=== PATIENT | female | born 1945 | race Two or more races ===

== ENCOUNTER 2017-04-23 18:16 | Observation (INO) | payer MEDICARE, OTHER ==
[~2017-04-23] VITALS: Ht 149.9 cm; Wt 45.4 kg
[2017-04-23 18:31] VITALS: BP 131/53
[2017-04-23] MEDS ORDERED: Sodium Chloride 500ML 500 ML IV ONE (18:45)
[2017-04-23] MEDS ORDERED: DiphenhydrAMINE 50mg/ml Inj IVP ONE (19:00)
--- NOTE | 2017-04-23 19:02 | Emergency Room Report ---
History of Present Illness General Chief Complaint: Dizziness Source: Patient Present Illness HPI Patient present with complaints of dizziness she reports at approximately 3:00 today she began feeling extremely dizzy nauseated She did vomit Denies any diarrhea Denies any chest pain or shortness of breath The dizziness is worsened with standing or moving her head Denies any neck pain or photophobia Denies any back pain or fall Allergies: Coded Allergies: No Known Allergies (Unverified , 04/23/17) Patient History Past Medical History: see triage record Pertinent Family History: none Last Menstrual Period: None Reviewed Nursing Documentation: PMH: Agreed, PSxH: Agreed Nursing Documentation-PMH Hx Diabetes: Yes Hx Cancer: Yes - right breast mastectomy Review of Systems All Other Systems: negative except mentioned in HPI Physical Exam Vital Signs Date Time Temp Pulse Resp B/P (MAP) Pulse Ox O2 Delivery O2 Flow Rate FiO2 04/23/17 18:21 98.2 74 22 147/62 99 Room Air Sp02 EP Interpretation: reviewed, normal General Appearance: mild distress - Appeared Nauseated Head: normocephalic, atraumatic Eyes: bilateral eye PERRL, bilateral eye EOMI ENT: hearing grossly normal, normal pharynx, TMs + canals normal, uvula midline Neck: full range of motion, supple, no meningismus, no bony tend Respiratory: lungs clear, normal breath sounds, no rhonchi, no respiratory distress, no retraction, no accessory muscle use Cardiovascular #1: normal peripheral pulses, regular rate, rhythm, no edema, no gallop, no JVD, no murmur Gastrointestinal: normal bowel sounds, non tender, soft, no mass, no organomegaly, non-distended, no guarding, no hernia, no pulsatile mass, no rebound Genitourinary: no CVA tenderness Musculoskeletal: normal inspection Neurologic: oriented x3, responsive, 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 as tested, motor strength/ tone normal, sensory intact Psychiatric: mood/affect normal Skin: normal color, no rash, warm/dry, palpation normal Lymphatic: normal inspection, no adenopathy Medical Decision Making Diagnostic Impression: Primary Impression: Dizziness Additional Impressions: Vomiting Unable to ambulate ER Course Patient is a fairly complex patient with multiple differential to consideration including but not limited to cardiac cardiopulmonary and vascular emergencies Intracranial pathology also entertained given the severe dizziness and vomiting CT head does not show any acute disease patient's blood work is at baseline levels Initially the patient felt well to go home however on attempt to stand has again extreme dizziness became nauseated patient is unable to ambulate and with this requires inpatient observation Labs Test 04/23/17 18:42 04/23/17 19:28 White Blood Count 9.6 K/UL (4.8-10.8) Red Blood Count 5.43 M/UL (4.20-5.40) Hemoglobin 12.2 G/DL (12.0-16.0) Hematocrit 40.4 % (37.0-47.0) Mean Corpuscular Volume 74 FL (80-99) Mean Corpuscular Hemoglobin 22.4 PG (27.0-31.0) Mean Corpuscular Hemoglobin Concent 30.1 G/DL (32.0-36.0) Red Cell Distribution Width 12.9 % (11.6-14.8) Platelet Count 232 K/UL (150-450) Mean Platelet Volume 7.2 FL (6.5-10.1) Neutrophils (%) (Auto) % (45.0-75.0) Lymphocytes (%) (Auto) % (20.0-45.0) Monocytes (%) (Auto) % (1.0-10.0) Eosinophils (%) (Auto) % (0.0-3.0) Basophils (%) (Auto) % (0.0-2.0) Differential Total Cells Counted 100 Neutrophils % (Manual) 83 % (45-75) Lymphocytes % (Manual) 12 % (20-45) Monocytes % (Manual) 4 % (1-10) Eosinophils % (Manual) 1 % (0-3) Basophils % (Manual) 0 % (0-2) Band Neutrophils 0 % (0-8) Platelet Estimate Adequate Platelet Morphology Normal Anisocytosis 1+ Sodium Level 140 MMOL/L (136-145) Potassium Level 3.7 MMOL/L (3.5-5.1) Chloride Level 103 MMOL/L (98-107) Carbon Dioxide Level 28 MMOL/L (21-32) Anion Gap 9 mmol/L (5-15) Blood Urea Nitrogen 21 mg/dL (7-18) Creatinine 0.7 MG/DL (0.55-1.30) Estimat Glomerular Filtration Rate > 60 mL/min (>60) Glucose Level 148 MG/DL (74-106) Calcium Level 9.5 MG/DL (8.5-10.1) Total Bilirubin 0.4 MG/DL (0.2-1.0) Aspartate Amino Transf (AST/SGOT) 18 U/L (15-37) Alanine Aminotransferase (ALT/SGPT) 21 U/L (12-78) Alkaline Phosphatase 63 U/L (46-116) Total Creatine Kinase 69 U/L (26-308) Creatine Kinase MB 0.5 NG/ML (0.0-3.6) Creatine Kinase MB Relative Index 0.7 Troponin I 0.001 ng/mL (0.000-0.056) Total Protein 7.9 G/DL (6.4-8.2) Albumin 4.0 G/DL (3.4-5.0) Globulin 3.9 g/dL Albumin/Globulin Ratio 1.0 (1.0-2.7) Lipase 260 U/L (73-393) Urine Color Pale yellow Urine Appearance Clear Urine pH 6 (4.5-8.0) Urine Specific [place] 1.015 (1.005-1.035) Urine Protein 2+ (NEGATIVE) Urine Glucose (UA) 4+ (NEGATIVE) Urine Ketones 1+ (NEGATIVE) Urine Occult Blood 2+ (NEGATIVE) Urine Nitrite Negative (NEGATIVE) Urine Bilirubin Negative (NEGATIVE) Urine Urobilinogen Normal MG/DL (0.0-1.0) Urine Leukocyte Esterase Negative (NEGATIVE) Urine RBC 2-4 /HPF (0 - 2) Urine WBC 0-2 /HPF (0 - 2) Urine Squamous Epithelial Cells Few /LPF (NONE/OCC) Urine Bacteria Few /HPF (NONE) Rhythm Strip Diag. Results EP Interpretation: yes Rate: 78 Rhythm: NSR, no PVC's, no ectopy Chest X-Ray Diagnostic Results Chest X-Ray Diagnostic Results : Chest X-Ray Ordered: Yes # of Views/Limited/Complete: 1 View Indication: Chest Pain EP Interpretation: Yes Interpretation: no consolidation, no effusion, no pneumothorax Impression: No acute disease Electronically Signed by: Elias Gardner DO CT/MRI/US Diagnostic Results CT/MRI/US Diagnostic Results : Impression CT head no acute disease Last Vital Signs Date Time Temp Pulse Resp B/P (MAP) Pulse Ox O2 Delivery O2 Flow Rate FiO2 04/23/17 18:31 97.1 71 19 131/53 95 Room Air Status: improved Disposition: PLACE IN OBSERVATION Condition: Serious Scripts Meclizine Hcl* (MECLIZINE*) 25 Mg Tablet 25 MG ORAL THREE TIMES A DAY, #14 TAB Prov: ELIAS GARDNER D.O. 04/23/17 Ondansetron Odt* (ZOFRAN ODT*) 4 Mg Tab.rapdis 4 MG ORAL Q6H Y for Nausea & Vomiting, #15 TAB 0 Refills Prov: ELIAS GARDNER D.O. 04/23/17 ELIAS GARDNER D.O. Apr 23, 2017 19:02
[2017-04-23 19:03] LABS: HEMATOCRIT 40.4 % (37.0-47.0); HEMOGLOBIN 12.2 G/DL (12.0-16.0); MEAN CORPUSCULAR VOLUME 74 FL (80-99); PLATELET COUNT 232 K/UL (150-450); RED BLOOD COUNT 5.43 M/UL (4.20-5.40); RED CELL DISTRIBUTION WIDTH 12.9 % (11.6-14.8); WHITE BLOOD COUNT 9.6 K/UL (4.8-10.8)
[2017-04-23 19:22] LABS: ALANINE AMINOTRANSFERASE 21 U/L (12-78); ALKALINE PHOSPHATASE 63 U/L (46-116); ANION GAP 9 mmol/L (5-15); ASPARTATE AMINO TRANSFERASE 18 U/L (15-37); BILIRUBIN,TOTAL 0.4 MG/DL (0.2-1.0); BLOOD UREA NITROGEN 21 mg/dL (7-18); CALCIUM 9.5 MG/DL (8.5-10.1); CARBON DIOXIDE 28 MMOL/L (21-32); CHLORIDE 103 MMOL/L (98-107); CKMB 0.5 NG/ML (0.0-3.6); CREATINE KINASE 69 U/L (26-308); CREATININE 0.7 MG/DL (0.55-1.30); POTASSIUM 3.7 MMOL/L (3.5-5.1); SODIUM 140 MMOL/L (136-145)
[2017-04-23 20:02] VITALS: BP 129/46
[2017-04-23 20:20] LABS: APPEARANCE,URINE CLEAR; BILIRUBIN, URINE NEGATIVE (NEGATIVE); COLOR,URINE PALE YELLOW; GLUCOSE, URINE (UA) 4+ (NEGATIVE); KETONES,URINE 1+ (NEGATIVE); LEUKOCYTE ESTERASE ,URINE NEGATIVE (NEGATIVE); NITRITE,URINE NEGATIVE (NEGATIVE); PH,URINE 6 (4.5-8.0); PROTEIN,URINE 2+ (NEGATIVE); UROBILINOGEN,URINE NORMAL MG/DL (0.0-1.0)
[2017-04-23] MEDS ORDERED: MECLIZINE HCL25 MG ORAL (20:24)
[2017-04-23] MEDS ORDERED: ZOFRAN ODT4 MG ORAL (20:24)
[2017-04-23] MEDS ORDERED: Meclizine 25mg tab ORAL ONE (20:30)
[2017-04-23] MEDS ORDERED: LOSARTAN POTASS50 MG ORAL (21:45)
[2017-04-23] MEDS ORDERED: METFORMIN HCL500 M1 ORAL (21:45)
[2017-04-23] MEDS ORDERED: JANUVIA25 MG ORAL (21:45)
[2017-04-23] MEDS ORDERED: ATORVASTATIN CA20 MG ORAL (21:45)
[2017-04-23 21:46] VITALS: BP 112/86
[2017-04-23] MEDS ORDERED: Milk of Magnesia 30ml Ud ORAL PRN (22:15)
[2017-04-23] MEDS ORDERED: Meclizine 25mg tab ORAL PRN (22:15)
[2017-04-24] VITALS: BP 128/58
[2017-04-24 04:00] VITALS: BP 124/66
[2017-04-24 07:52] LABS: BASOPHILS % (AUTO) 0.9 % (0.0-2.0); EOSINOPHILS % (AUTO) 1.6 % (0.0-3.0); HEMATOCRIT 39.3 % (37.0-47.0); HEMOGLOBIN 12.1 G/DL (12.0-16.0); LYMPHOCYTES % (AUTO) 37.7 % (20.0-45.0); MEAN CORPUSCULAR VOLUME 74 FL (80-99); MONOCYTES % (AUTO) 3.3 % (1.0-10.0); NEUTROPHILS % (AUTO) 56.4 % (45.0-75.0); PLATELET COUNT 231 K/UL (150-450); RED BLOOD COUNT 5.28 M/UL (4.20-5.40); RED CELL DISTRIBUTION WIDTH 13.3 % (11.6-14.8); WHITE BLOOD COUNT 5.7 K/UL (4.8-10.8)
[2017-04-24 08:00] VITALS: BP 136/67
[2017-04-24 08:14] LABS: ALANINE AMINOTRANSFERASE 20 U/L (12-78); ALBUMIN 3.6 G/DL (3.4-5.0); ALBUMIN/GLOBULIN RATIO 0.9 (1.0-2.7); ALKALINE PHOSPHATASE 61 U/L (46-116); ANION GAP 9 mmol/L (5-15); ASPARTATE AMINO TRANSFERASE 15 U/L (15-37); BILIRUBIN,TOTAL 0.6 MG/DL (0.2-1.0); BLOOD UREA NITROGEN 16 mg/dL (7-18); CALCIUM 9.1 MG/DL (8.5-10.1); CARBON DIOXIDE 26 MMOL/L (21-32); CHLORIDE 107 MMOL/L (98-107); CREATININE 0.7 MG/DL (0.55-1.30); POTASSIUM 3.8 MMOL/L (3.5-5.1); SODIUM 142 MMOL/L (136-145)
[2017-04-24] MEDS ORDERED: sitaGLIPtin 25mg tab ORAL SCH (09:00)
[2017-04-24] MEDS ORDERED: metFORMIN 500mg tab ORAL SCH (09:00)
[2017-04-24] MEDS ORDERED: Heparin 5000 units/ml inj SUBQ SCH (09:00)
[2017-04-24] MEDS ORDERED: NS w/KCl 20mEq 1,000 ML IV SCH (09:00)
[2017-04-24] MEDS ORDERED: Losartan 50mg tab ORAL SCH (09:00)
--- NOTE | 2017-04-24 11:00 | Diagnostic Imaging Report ---
Indication: Chest pain Technique: One view of the chest Comparison: none Findings: No acute infiltrates, effusions, or congestion. Tortuous calcified aorta. Upper limits normal heart size. Upper mediastinum unremarkable. Impression: No acute process.
--- NOTE | 2017-04-24 11:02 | Diagnostic Imaging Report ---
Indication: Dizziness Technique: spiral acquisitions obtained through the brain. Angled axial and coronal 5 x 5 mm slices were reconstructed. No IV contrast utilized. Radiation dose was minimized using automated exposure control Total dose length product 1340 mGycm. CTDIvol(s) 70 mGy Comparison: none FINDINGS: No acute hemorrhage or edema. No mass effect or midline shift. There is age-related enlargement of the ventricles and extra axial CSF spaces. There is periventricular deep white matter ischemic change. Normal mak-white differentiation. Visualized orbits are unremarkable. There is ethmoid and sphenoid sinus mucosal disease. The right mastoids are underpneumatized. Intact calvarium. IMPRESSION: Chronic and age-related changes. Negative for acute intracranial bleed or mass effect This agrees with the preliminary interpretation provided overnight by [facility]erad[facility] service. The CT scanner at [facility] is accredited by the [employer] and the scans are performed using protocols designed to limit radiation exposure to as low as reasonably achievable to attain images of sufficient resolution adequate for diagnostic evaluation
--- NOTE | 2017-04-24 11:02 | Diagnostic Imaging Report ---
Indication: Dizziness Technique: spiral acquisitions obtained through the brain. Angled axial and coronal 5 x 5 mm slices were reconstructed. No IV contrast utilized. Radiation dose was minimized using automated exposure control Total dose length product 1340 mGycm. CTDIvol(s) 70 mGy Comparison: none FINDINGS: No acute hemorrhage or edema. No mass effect or midline shift. There is age-related enlargement of the ventricles and extra axial CSF spaces. There is periventricular deep white matter ischemic change. Normal mak-white differentiation. Visualized orbits are unremarkable. There is ethmoid and sphenoid sinus mucosal disease. The right mastoids are underpneumatized. Intact calvarium. IMPRESSION: Chronic and age-related changes. Negative for acute intracranial bleed or mass effect This agrees with the preliminary interpretation provided overnight by [facility] service. The CT scanner at [facility] is accredited by the [employer] and the scans are performed using protocols designed to limit radiation exposure to as low as reasonably achievable to attain images of sufficient resolution adequate for diagnostic evaluation
[2017-04-24 11:48] VITALS: BP 131/59
[2017-04-24] MEDS ORDERED: D5 1/2NS 1000ml IV ONE (15:29)
[2017-04-24] MEDS ORDERED: Atorvastatin 20mg tab ORAL SCH (21:00)
--- NOTE | 2017-04-24 22:45 | History and Physical Report ---
DATE OF ADMISSION: 04/23/2017 CHIEF COMPLAINT/REASON FOR HOSPITALIZATION: The patient is admitted with vertigo. 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 At about 3 p.m. on 04/23/2017, she got very dizzy with the room spinning and vertigo. She was working with one of her clients since the patient at an assisted living facility. She felt dizzy and nauseated and had episodes of emesis. No fever, chills, palpitations, angina, or other symptoms. No focal neurologic weakness. History is significant for adult onset diabetes, generally well controlled. Glucose is in the 80s to low 100 and hypertension with usual home blood pressure around 140 systolic. She also has hyperlipidemia. She has had a history of a tremor and saw neurologist, who gave her a small pill at night, but she discontinued that sometime ago. Tremor is very mild. She denies tinnitus or hearing impairment. SURGERIES: Cholecystectomy and right mastectomy in 1992 for breast cancer without any recurrence or adjuvant treatment. HOME MEDICATIONS: Losartan 100 mg daily, atorvastatin 20 mg daily, metformin 500 mg b.i.d., and Januvia 25 mg daily. ALLERGIES: None known. HABITS: She is a nondrinker and nonsmoker. No use of illicit drugs. SYSTEM REVIEW: HEAD, EYES, EARS, NOSE, AND THROAT: See above. She wears eye glasses. No diplopia. ENDOCRINE: Diabetes as above. No known thyroid disease. PULMONARY: No chronic cough, asthma, or TB. CARDIAC: No angina, NE, or palpitations. GASTROINTESTINAL: No history of GI bleeding, hematochezia, melena, or abdominal pain. She gets occasional heartburn. GENITOURINARY: No dysuria, hematuria, or kidney stones. NEUROLOGIC: History of tremor. No strokes or seizures. She was hospitalized once for headaches and had negative CT scan. PHYSICAL EXAMINATION: GENERAL: The patient is an alert, well-developed lady, who looks younger than her stated age. VITAL SIGNS: Temperature 98.1, pulse 65, respirations 19, and blood pressure 131/59. HEAD, EYES, EARS, NOSE, AND THROAT: Sclerae nonicteric. Ocular motions intact in all directions. Oral mucosa moist. Tympanic membranes clear. NECK: No adenopathy or thyroid enlargement. BREASTS: Right mastectomy. Left breast, no masses. ABDOMEN: Soft without organomegaly or masses. HEART: Regular rhythm. No murmur, gallop, or rub. NEUROLOGIC: She is alert and oriented with clear speech. Ocular motions intact in all directions. Smile and frown are symmetric. Tongue is midline. She moves all extremities equally. There is a very minimal almost imperceptible tremor. IMPRESSION: 1. Vertigo, likely benign positional vertigo, associated with nausea and vomiting. 2. Adult onset diabetes. 3. History of hypertension. 4. History of tremor. PLAN: The patient is clinically improved. Her laboratories are stable. CT scan was done, shows no acute process, so the plan is for discharge. She was initially given clear liquid diet and hydration and observation on meclizine and has improved with this. Jaden Ordonez M.D. DR: JEB JOB#: [id number] CC:
--- NOTE | 2017-04-24 23:30 | Discharge Summary ---
DATE OF ADMISSION: 04/23/2017 DATE OF DISCHARGE: 04/24/2017 PERTINENT HISTORY: See my dictated History and Physical. The patient presents with vertigo, nausea, and vomiting. PERTINENT PHYSICAL FINDINGS: Negative physical exam. COURSE IN THE HOSPITAL: The patient was placed on clear liquid diets and hydrated. Her nausea and vomiting abated as that her dizziness. There was no orthostatic vital signs. She felt better. Her laboratories were stable. CT brain was negative and she was discharged home in stable condition. FINAL DIAGNOSES: 1. Benign positional vertigo. 2. Nausea and vomiting, secondary to above. 3. Adult onset diabetes. 4. Hypertension. PLAN: The patient is discharged home on a diabetic diet and medications per the discharge medication list, which include her prior to admission medications and meclizine 25 mg q.4 hours as needed. She is instructed not to have rapid position changes and to sit still if she has any more vertigo and to follow up with her primary care physician. Monitor diabetes and hypertension. Jaden Ordonez M.D. DR: TRIP JOB#: [id number] CC:
--- NOTE | 2017-04-25 13:30 | Cardiology Report ---
APPROVED REPORT EKG Measurement Heart [id number] 134P44 [id number] Normal sinus rhythm Normal ECG
--- NOTE | 2017-04-25 13:30 | Cardiology Report ---
APPROVED REPORT EKG Measurement Heart [id number] [place] 134P44 [id number] Normal sinus rhythm Normal ECG
--- NOTE | 2017-04-25 13:30 | Cardiology Report ---
APPROVED REPORT EKG Measurement Heart [id number] [place] 134P44 [id number] Normal sinus rhythm Normal ECG
== END 2017-04-24 15:30 | disposition home or self-care (01) ==
LOC: EDBD 18:16 → EMR 19:12 → EDBEDREQ 21:05 → 4E 21:30
DX: H81.10 Benign paroxysmal vertigo, unspecified ear (principal); R11.2 Nausea with vomiting, unspecified; E11.9 Type 2 diabetes mellitus without complications; I10 Essential (primary) hypertension; E78.5 Hyperlipidemia, unspecified; R25.1 Tremor, unspecified; Z90.49 Acquired absence of other specified parts of digestive tract; Z90.11 Acquired absence of right breast and nipple; Z85.3 Personal history of malignant neoplasm of breast; Z79.84 Long term (current) use of oral hypoglycemic drugs
CPT/HCPCS: 36415 ×2; 70450; 71010; 80053 ×2; 81003; 82550; 82553; 83690; 84443; 84484 ×2; 85007; 85025 ×2; 93005; 96365; 96372; 97110; 97116; 97161; 97530; 99285; G0378 ×2; G8978; G8979; J1200; J1644; J2405; J7040